=== PATIENT | female | born 1990 | race Caucasian/White ===

== ENCOUNTER 2017-03-19 12:57 | Emergency (ER) | payer MEDICAID, OTHER ==
[~2017-03-19] VITALS: Ht 157.5 cm; Wt 80.7 kg
[2017-03-19 13:10] VITALS: BP 113/64
--- NOTE | 2017-03-19 14:15 | NUR ---
Note undfitz in EDM - 03/19/17 at 1526 by [facility] presents to ED for evaluation of abdominal ortiz accompanied with N/V/D x 3 days. Patient also reports having fever. Afebrile at this time. Patient states she was at the urgent care in [place] earlier. Patient states her mother went to pick her up and brought her down here to help her take of her kids so she could come to the ED. Patient is restless and c/o RUQ pain, 07/27. Patient is AOX4, ambulatory with steady gait. VSS.
--- NOTE | 2017-03-19 14:55 | NUR ---
Patient ambulated to bed 06.
--- NOTE | 2017-03-19 15:02 | NUR ---
Dr. Laws evaluating patient at bedside.
[2017-03-19] MEDS ORDERED: KETOROLAC 30 MG/ML VIAL IVP ONE (15:10)
[2017-03-19] MEDS ORDERED: NACL 0.9% 1,000 ML IV ONE ×2 (15:10→16:50)
[2017-03-19] MEDS ORDERED: PROMETHAZINE 25 MG/ML VIAL IVP ONE (15:10)
--- NOTE | 2017-03-19 15:15 | NUR ---
27/F presents to ED for evaluation of abdominal ortiz accompanied with N/V/D x 3 days. Patient also reports having fever. Afebrile at this time. Patient states she was at the urgent care in [place] earlier. Patient states her mother went to pick her up and brought her down here to help her take of her kids so she could come to the ED. Patient is restless and c/o RUQ pain, 9/10. Patient is AOX4, ambulatory with steady gait. VSS.
--- NOTE | 2017-03-19 15:16 | NUR ---
Patient taken to US via w/c.
--- NOTE | 2017-03-19 15:35 | NUR ---
Patient back from US via wheelchair per tech.
--- NOTE | 2017-03-19 15:36 | NUR ---
Patient returned from US.
[2017-03-19] MEDS ORDERED: DICYCLOMINE HCL LIQUID 10 MG/5 ML UDC PO ONE (15:50)
--- NOTE | 2017-03-19 16:20 | NUR ---
Patient found to be resting comfortably in bed. Vital Signs within normal limits. Respirations even and unlabored. No signs of distress noted.
[2017-03-19 17:47] VITALS: BP 113/57
--- NOTE | 2017-03-19 17:49 | NUR ---
Patient discharged with v/s stable. Written and verbal after care instructions given and explained. Patient alert, oriented and verbalized understanding of instructions. Ambulatory with steady gait. All questions addressed prior to discharge. ID band removed. Patient advised to follow up with PMD. Rx of DANIAL PEREZ given. Patient educated on indication of medication including possible reaction and side effects. Opportunity to ask questions provided and answered.
--- NOTE | 2017-03-25 13:14 | NUR ---
IV FLUIDS DISCONTINUED AT 1749 03/19/17.
== END 2017-03-19 17:49 | disposition home or self-care (01) ==
LOC: MED 12:57
PROC: BW40ZZZ Ultrasonography of Abdomen (ICD-10-PCS; principal; 2017-03-19)
DX: R10.9 Unspecified abdominal pain (principal); R11.11 Vomiting without nausea; R19.7 Diarrhea, unspecified; Z32.02 Encounter for pregnancy test, result negative
CPT/HCPCS: 36415; 76705; 80053; 81025; 83690; 85025; 96361; 96374; 96375; 99285; J1885; J2550; J7030